=== PATIENT | male | born 1965 | race African-American/Black ===

== ENCOUNTER 2024-05-11 13:51 | Emergency (ER) | payer MEDICAID, OTHER ==
[~2024-05-11] VITALS: Ht 172.7 cm; Wt 62.0 kg
[2024-05-11 13:54] VITALS: O2SAT 98
[2024-05-11] MEDS: FLUORESCEIN SODIUM 1MG/STRIP BOTHEYE ONE (14:47)
[2024-05-11] MEDS: TETRACAINE 0.5% OPHTH DROPS 4ML BOTHEYE ONE (14:47)
[2024-05-11] MEDS: PREDNISONE 20MG TABLET PO ONE (15:29)
[2024-05-11] MEDS: FAMOTIDINE 20MG TABLET PO ONE (15:29)
[2024-05-11] MEDS: DIPHENHYDRAMINE 50MG/ML VIAL IM ONE (15:29)
[2024-05-11] MEDS ORDERED: HYDR-4001 MT (16:03)
[2024-05-11] MEDS ORDERED: ERYT1OIN6 EACHEYE (16:03)
[2024-05-11] MEDS: HYDROCODONE/ACETAMINOPHEN 5/325MG TABLET PO ONE (16:50)
[2024-05-11 16:58] VITALS: BP 144/88; PULSE 80; RESP 16; TEMP 98
== END 2024-05-11 18:08 | disposition home or self-care (01) ==
LOC: ER 13:51
DX: H57.13 Ocular pain, bilateral (principal); Z98.890 Other specified postprocedural states
CPT/HCPCS: 99284; 96372; J7512; J1200